=== PATIENT | female | born 1995 | race Two or more races ===

== ENCOUNTER 2019-05-16 14:03 | Emergency (ER) | payer OTHER ==
[~2019-05-16] VITALS: Ht 160 cm; Wt 67.1 kg
[2019-05-16] MEDS ORDERED: ACETAMINOPHEN ES 500 MG TABLET ONE (14:23)
[2019-05-16] MEDS ORDERED: ACETAMINOPHEN 325 MG TABLET PO ONE (14:30)
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
[2019-05-16 15:29] VITALS: BP 110/65
--- NOTE | 2019-05-16 15:29 | NUR ---
Patient discharged to home in stable condition. Written and verbal after care instructions given. Patient verbalizes understanding of instruction.
== END 2019-05-16 15:30 | disposition home or self-care (01) ==
LOC: ER 14:04
DX: M54.5 Low back pain (principal); V49.59XA Passenger injured in collision with other motor vehicles in traffic accident, initial encounter; Y93.89 Activity, other specified; Y92.413 State road as the place of occurrence of the external cause; Y99.8 Other external cause status